=== PATIENT | female | born 1990 | race Two or more races ===

== ENCOUNTER 2018-08-09 13:00 | Emergency (ER) | payer SELFPAY ==
[~2018-08-09] VITALS: Ht 157.5 cm; Wt 67.1 kg
[2018-08-09] MEDS ORDERED: ACET325T53 MC (13:15)
--- NOTE | 2018-08-09 13:16 | NUR ---
BIB SELF FOR HEADACHE X 3 DAYS,TYLENOL NOT HELPING, 14 WEEKS . TO ER BED 14, HOOKED TO MONITOR, PROVIDED W WARM BLANKET, AWAITING MD JOSEPH.
--- NOTE | 2018-08-09 13:55 | NUR ---
RJ GALLEGOS [employer] AT BEDSIDE
[2018-08-09] MEDS ORDERED: ACETAMINOPHEN 325 MG TABLET PO ONE (14:30)
[2018-08-09] MEDS ORDERED: ACETAMINOPHEN 325 MG TABLET ONE (14:45)
--- NOTE | 2018-08-09 14:55 | NUR ---
URINE SPECIMEN COLLECTED and SENT TO LAB.
[2018-08-09 15:04] LABS: APPEARANCE,URINE Clear (CLEAR); BILIRUBIN,URINE Negative (NEGATIVE); BLOOD, URINE Negative Ery/uL (NEGATIVE); COLOR,URINE Yellow (YELLOW); KETONES,URINE Negative (NEGATIVE); LEUKOCYTE ESTERASE ,URINE Negative (NEGATIVE); NITRITE, URINE Negative (NEGATIVE); PH,URINE 7.5 (5.0-8.0); PROTEIN,URINE Trace mg/dl (NEGATIVE); UGLUCOSE Negative (NEGATIVE); UROBILINOGEN,URINE 0.2 EU/dL (0.2)
--- NOTE | 2018-08-09 15:46 | NUR ---
Patient discharged to home in stable condition. Written and verbal after care instructions given. Patient verbalizes understanding of instruction.
[2018-08-09 15:55] VITALS: BP 106/60
== END 2018-08-09 15:56 | disposition home or self-care (01) ==
LOC: ER 13:00
DX: O26.892 Other specified pregnancy related conditions, second trimester (principal); R51 Headache; Z3A.16 16 weeks gestation of pregnancy
CPT/HCPCS: 81000-TC